=== PATIENT | male | born 1980 | race Caucasian/White ===

== ENCOUNTER 2017-06-13 11:32 | Emergency (ER) | payer SELFPAY ==
[~2017-06-13] VITALS: Ht 162.6 cm; Wt 89.4 kg
[2017-06-13] MEDS ORDERED: TETRACAINE 0.5% OPHTH SOLUTION 4ML BOTTLE. ONE (12:26)
[2017-06-13] MEDS ORDERED: FLUORESCEIN 1MG EYE STRIP. ONE (13:17)
[2017-06-13] MEDS ORDERED: FLUORESCEIN 1MG EYE STRIP. OU ONE (13:30)
[2017-06-13] MEDS ORDERED: HYDR-2758 PO (13:38)
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
[2017-06-13] MEDS ORDERED: HYDROcodone/APAP 5/325MG 1 TAB TABLET PO ONE (13:45)
[2017-06-13 15:10] VITALS: BP 135/86
== END 2017-06-13 15:20 | disposition home or self-care (01) ==
LOC: ER 11:32
DX: T26.62XA Corrosion of cornea and conjunctival sac, left eye, initial encounter (principal); T26.61XA Corrosion of cornea and conjunctival sac, right eye, initial encounter; Y93.89 Activity, other specified; Y99.8 Other external cause status; Y92.89 Other specified places as the place of occurrence of the external cause
CPT/HCPCS: 99283

== ENCOUNTER 2018-12-06 22:27 | Emergency (ER) | payer SELFPAY ==
[~2018-12-06] VITALS: Ht 160 cm; Wt 104.3 kg
[~2018-12-06 22:27] MED LIST: HYDR-2155 PO
[2018-12-06] MEDS ORDERED: IV NORMAL SALINE 1,000ML 1,000 ML IV SCH (22:47)
[2018-12-06] MEDS ORDERED: ONDANSETRON PF 4 MG/2 ML VIAL. IV ONE (23:00)
--- NOTE | 2018-12-06 23:04 | EKG ---
[address] [address] Test Date: 2018-12-06 Test Time: 22:59:22 Pat Name: GRETA SINGH Department: Room: Gender: M [employer]: : [id number] Requested By: CELIO FITZPATRICK Order Number: [id number] Reading MD: Tripp Mora Measurements Intervals [place] Rate: 118 P: 86 MO: 124 QRS: 2 QRSD: 90 T: 17 QT: 354 QTc: 499 Interpretive Statements SINUS TACHYCARDIA Electronically Signed On 12-26-2018 12:45:17 CDT by Tripp Mora
[2018-12-06 23:12] LABS: BASO # 0.1 x10^3/uL (0.0-0.2); BASO % 1 % (0-3); EOS % 0 % (0-3); HEMATOCRIT 43.9 % (39.0-53.0); LYMPH # 2.6 x10^3/uL (1.0-4.8); LYMPH % 16 % (24-48); MEAN CORPUSCULAR HEMOGLOBIN 29 pg (25-35); MEAN CORPUSCULAR HGB CONC 34 g/dL (31-37); MEAN CORPUSCULAR VOLUME 85 fL (79-100); MONO # 1.6 x10^3/uL (0.0-1.1); MONO % 10 % (0-9); NEUT # 11.7 x10^3uL (1.8-7.7); NEUT % 73 % (31-73); PLATELET COUNT 337 x10^3/uL (140-400); RED BLOOD COUNT 5.14 x10^6/uL (4.30-5.70)
[2018-12-06 23:21] LABS: ALBUMIN 4.6 g/dL (3.4-5.0); CALCIUM 9.6 mg/dL (8.5-10.1); CREATININE 1.7 mg/dL (0.7-1.3); DIRECT BILIRUBIN 0.3 mg/dL (0.0-0.2); GFR 45.1; MAGNESIUM 2.7 mg/dL (1.8-2.4); POTASSIUM 3.2 mmol/L (3.5-5.1); TOTAL BILIRUBIN 1.2 mg/dL (0.2-1.0); TOTAL PROTEIN 8.3 g/dL (6.4-8.2)
[2018-12-06 23:29] LABS: % BANDS 4 % (0-9); % LYMPHS 17 % (24-48); % MONOS 4 % (0-10); % SEGS 75 % (35-66); PLT ESTIMATE ADEQUATE (ADEQUATE)
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
[2018-12-07 00:13] LABS: BACTERIA,URINE 0 /HPF (0-FEW); BILIRUBIN,URINE NEG (NEG); CLARITY,URINE CLEAR; COLOR,URINE YELLOW; GLUCOSE,URINE NEG (NEG); NITRITE,URINE NEG (NEG); SQUAMOUS EPITHELIAL CELL,UR FEW /LPF; UROBILINOGEN,URINE 0.2 mg/dL (0.2 mg/dL); WBC,URINE OCC /HPF (0-4)
[2018-12-07 00:16] LABS: BARBITURATES NEG (NEG); BENZODIAZEPINES NEG (NEG); CANNABINOIDS NEG (NEG); COCAINE NEG (NEG); METHADONE NEG (NEG); OPIATES NEG (NEG); PHENCYCLIDINE NEG (NEG)
[2018-12-07 00:17] LABS: AMPHETAMINE/METHAMPHETAMINE POS (NEG)
[2018-12-07 00:45] VITALS: BP 105/68
== END 2018-12-07 00:54 | disposition home or self-care (01) ==
LOC: ER 22:27
DX: F15.10 Other stimulant abuse, uncomplicated (principal); R11.2 Nausea with vomiting, unspecified; F32.9 Major depressive disorder, single episode, unspecified
CPT/HCPCS: 36415; 80048; 80076; 80307; 81001; 83735; 85007; 85025; 93005; 96361; 96374; 99285; G0480; J2405; J7030